=== PATIENT | male | born 1980 | race Caucasian/White ===

== ENCOUNTER 2017-01-10 09:45 | Emergency (ER) | payer MEDICAID ==
[~2017-01-10] VITALS: Ht 185.4 cm; Wt 93.0 kg
[~2017-01-10 09:45] MED LIST: AUGM875T PO
[2017-01-10 09:52] VITALS: BP 149/106; PULSE 96; RESP 16; TEMP 98.5; O2SAT 97
[2017-01-10] MEDS ORDERED: KETOROLAC TROMETHAMINE 60 MG/2 ML (IM) VIAL IM ONE (10:30)
[2017-01-10] MEDS ORDERED: ORPHENADRINE INJ 60 MG/2 ML AMP IM ONE (10:30)
[2017-01-10] MEDS ORDERED: ROBA500T PO (10:32)
--- NOTE | 2017-01-10 10:32 | PD ---
HPI Chief Complaint: Musculoskeletal Complaint Time Seen by Provider: 10:16 Travel History International Travel<30 days: No Contact w/Intl Traveler<30days: No Traveled to known affect area: No History of Present Illness HPI 36-year-old male here for evaluation of upper back and neck pain/stiffness 4 days. He denies injury. He denies fever, chills, headache. He describes the pain as "spasming". It is slightly relieved with OTC Motrin. Symptom severity is moderate. PFSH Past Medical History Medical History: Denies Significant Hx Diminished Hearing: No Immunizations Current: No Social History Alcohol Use: Yes (SOCIAL) Tobacco Use: Yes (1 PPD) Substance Use: No Allergies-Medications (Allergen,Severity, Reaction): Coded Allergies: penicillin G (Unverified Allergy, Unknown, UNKNOWN, 01/10/17) shellfish derived (Unverified Allergy, Unknown, 01/10/17) Reported Meds & Prescriptions Reported Meds & Active Scripts Active No Active Prescriptions or Reported Medications Review of Systems Except as stated in HPI: all other systems reviewed are Neg Physical Exam Narrative GENERAL: Well-nourished, well-developed patient. SKIN: Focused skin assessment warm/dry. HEAD: Normocephalic. EYES: No scleral icterus. No injection or drainage. NECK: Supple, trachea midline. No JVD or lymphadenopathy. No midline cervical spine tenderness. Bilateral trapezius muscle spasms CARDIOVASCULAR: Regular rate and rhythm without murmurs, gallops, or rubs. RESPIRATORY: Breath sounds equal bilaterally. No accessory muscle use. GASTROINTESTINAL: Abdomen soft, non-tender, nondistended. BACK: Nontender without obvious deformity. No CVA tenderness. Data Data Last Documented VS Vital Signs Date Time Temp Pulse Resp B/P (MAP) Pulse Ox O2 Delivery O2 Flow Rate FiO2 01/10/17 09:52 98.5 96 16 149/106 (120) 97 MDM Medical Decision Making Medical Screen Exam Complete: Yes Emergency Medical Condition: Yes Differential Diagnosis Cervical strain, trapezius muscle spasm, other Narrative Course 36-year-old male here with upper back and neck stiffness 4 days. He denies fever or chills. He denies injury. On exam he has a lateral trapezius muscle tenderness and spasms. No nuchal rigidity. He will be treated for trapezius muscle spasms. Diagnosis Primary Impression: Neck muscle strain Qualified Codes: S16.1XXA - Strain of muscle, fascia and tendon at neck level , initial encounter Referrals: [facility] Additional Instructions: Continue to take the Motrin 800 mg every 6 hours for pain. Take muscle relaxers as needed for muscle spasms. Avoid heavy lifting or strenuous activity. Return if he developed new or worsening symptoms. Scripts Methocarbamol (Robaxin) 500 Mg Tab 500 MG PO TID for Muscle Spasm, #15 TAB 0 Refills Prov: Rosie Acosta 01/10/17 Disposition: 01 DISCHARGE HOME Condition: Stable Rosie Acosta Jan 10, 2017 10:32
== END 2017-01-10 10:50 | disposition home or self-care (01) ==
LOC: PHEFT 09:45
DX: S16.1XXA Strain of muscle, fascia and tendon at neck level, initial encounter (principal); F17.210 Nicotine dependence, cigarettes, uncomplicated; Z88.0 Allergy status to penicillin
CPT/HCPCS: 96372; 99284; J1885; J2360